=== PATIENT | male | born 1975 | race Caucasian/White ===

== ENCOUNTER 2017-11-23 09:09 | Emergency (ER) | payer MEDICAID ==
[~2017-11-23] VITALS: Wt 86.2 kg
[~2017-11-23 09:09] MED LIST: AMOXICILLIN500 M2 PO; FLONASE ALLERG9.9 ML NAS
[2017-11-23] MEDS ORDERED: ASPIR LOW81 MG PO (09:10)
[2017-11-23] MEDS ORDERED: NORCO 5-325 TA1 EACH PO (10:02)
== END 2017-11-23 10:25 | disposition home or self-care (01) ==
LOC: ED 09:09
DX: S62.665A Nondisplaced fracture of distal phalanx of left ring finger, initial encounter for closed fracture (principal); W23.0XXA Caught, crushed, jammed, or pinched between moving objects, initial encounter; Y93.89 Activity, other specified; Y92.89 Other specified places as the place of occurrence of the external cause; Y99.8 Other external cause status

== ENCOUNTER 2023-03-16 05:50 | Emergency (ER) | payer BC, OTHER ==
[~2023-03-16] VITALS: Ht 175.2 cm; Wt 108.9 kg
[~2023-03-16 05:50] MED LIST changes: +ASPIR LOW81 MG PO; +NORCO 5-325 TA1 EACH PO
== END 2023-03-16 06:52 | disposition home or self-care (01) ==
LOC: ED 05:50
DX: B34.9 Viral infection, unspecified (principal); Z20.822 Contact with and (suspected) exposure to COVID-19; Z79.899 Other long term (current) drug therapy; Z79.82 Long term (current) use of aspirin

== ENCOUNTER 2023-03-26 05:06 | Emergency (ER) | payer OTHER ==
[~2023-03-26] VITALS: Ht 175.2 cm; Wt 108.9 kg
== END 2023-03-26 06:04 | disposition home or self-care (01) ==
LOC: ED 05:06
DX: Z02.79 Encounter for issue of other medical certificate (principal); Z98.890 Other specified postprocedural states